=== PATIENT | male | born 1955 | race Caucasian/White ===

== ENCOUNTER → 2024-05-01 10:35 | Outpatient (REF) | payer OTHER, BC, SELFPAY | LOC: HWRAD 10:35 | PROVIDERS: ATTENDING PHYSICIAN Specialist; FAMILY PHYSICIAN Internal Medicine | DX: S93.334 Other dislocation of right foot (principal) | CPT/HCPCS: 73700 ==

== ENCOUNTER → 2025-01-13 13:34 | Outpatient (REF) | payer SELFPAY | LOC: HWRAD 13:34 | DX: Z03.89 Encounter for observation for other suspected diseases and conditions ruled out (principal) | CPT/HCPCS: 75571 ==

== ENCOUNTER → 2025-04-13 10:01 | Outpatient (REF) | payer BC, SELFPAY | LOC: HWRCS 10:01 | PROVIDERS: ATTENDING PHYSICIAN Internal Medicine Cardiovascular Disease; FAMILY PHYSICIAN Internal Medicine | DX: R06.02 Shortness of breath (principal) | CPT/HCPCS: 93306 ==

== ENCOUNTER → 2025-04-14 09:51 | Outpatient (REF) | payer BC, SELFPAY | LOC: RCS 09:51 | PROVIDERS: ATTENDING PHYSICIAN Internal Medicine Cardiovascular Disease; FAMILY PHYSICIAN Internal Medicine | DX: R06.02 Shortness of breath (principal) | CPT/HCPCS: 93017; 93350 ==